=== PATIENT | female | born 1980 | race Caucasian/White ===

== ENCOUNTER 2024-06-20 11:51 | Day surgery (SDC) | payer OTHER ==
[~2024-06-20] VITALS: Ht 160 cm; Wt 108.0 kg
[~2024-06-20 11:51] MED LIST: FLUO40CA PO; GLYCOPYRROLATE INJ 0.2 MG/ML 2 ML VIAL As Ordered ONE; HYDR-3363 PO; KETOROLAC 30 MG/ML 1ML VIAL As Ordered ONE; LIDOCAINE 2% 100MG/5ML SDV (FOR ANES.) As Ordered ONE; MIDAZOLAM INJ 2MG/2ML VIAL As Ordered ONE; OMEP40CA5 PO; ONDANSETRON 4MG 2ML VIAL As Ordered ONE; RIZA5TAB2; ROCURONIUM BROMIDE 50MG/5ML VIAL As Ordered ONE; SEMA1PEN2 SQ; SUGAMMADEX SODIUM 500 MG/5 ML VIAL (BRIDION) As Ordered ONE; TOPI-21 PO; TRAZ-257 PO; fentaNYL 100 MCG/2 ML INJECTION As Ordered ONE; propofoL 200 MG/20 ML VIAL As Ordered ONE
[2024-06-20] MEDS: AMPICILLIN SOD/SULBACTAM SOD 3 GM in D5W MINI-BAG 100 ML IV ONE (14:09)
[2024-06-20] MEDS ORDERED: ACETAMINOPHEN 1000MG/100ML IV BAG As Ordered ONE (14:10)
[2024-06-20] MEDS: CHLORHEXIDINE GLUCONATE 0.12 % 15ML UDC (PERIDEX ORAL RINSE) As Ordered ONE (14:12)
[2024-06-20] MEDS: LIDOCAINE 2% W/ EPINEPHRINE 1.7 ML DENTAL INJ As Ordered ONE (14:15)
[2024-06-20] MEDS: BUPivacaine LIPOSOME/PF 266MG 20ML VIAL (13.3MG/ML)(EXPAREL) As Ordered ONE (14:35)
[2024-06-20] MEDS ORDERED: MORPHINE 2 MG/ML 1ML VIAL IV PRN (14:45)
[2024-06-20] MEDS: ONDANSETRON 4MG 2ML VIAL IV PRN (15:01)
[2024-06-20] MEDS: oxyCODONE 5MG TAB PO PRN (15:01)
[2024-06-20] MEDS: fentaNYL 100 MCG/2 ML INJECTION IV PRN (15:01)
[2024-06-20] MEDS: METOCLOPRAMIDE INJ 10MG/2ML VIAL IV PRN (15:47)
[2024-06-20 16:31] VITALS: BP 136/71; TEMP 97.1; O2SAT 98
== END 2024-06-20 16:39 | disposition home or self-care (01) ==
LOC: M SDC 11:51
PROVIDERS: ATTEND Dentist
DX: K02.9 Dental caries, unspecified (principal); Z68.41 Body mass index [BMI] 40.0-44.9, adult; Z88.8 Allergy status to other drugs, medicaments and biological substances; Z79.899 Other long term (current) drug therapy; F17.210 Nicotine dependence, cigarettes, uncomplicated
CPT/HCPCS: 88300; D7140; D7210; D7310; J0131; J0295; J0666; J1100; J1596; J1885; J2250; J2405; J2765; J3010